=== PATIENT | male | born 1990 | race Caucasian/White ===

== ENCOUNTER 2024-03-03 12:54 | Emergency (ER) | payer OTHER ==
[~2024-03-03] VITALS: Ht 188 cm; Wt 97.5 kg
[2024-03-03 13:12] VITALS: BP 134/80; PULSE 96; RESP 18; TEMP 97.5; O2SAT 98
[2024-03-03] MEDS ORDERED: AZIT250T4 PO (14:54)
[2024-03-03] MEDS ORDERED: BENZ100C6 PO (14:54)
[2024-03-03 15:44] LABS: FLU A ANTIGEN negative (NEGATIVE); FLU B ANTIGEN negative (NEGATIVE)
[2024-03-03 15:58] VITALS: BP 134/80; PULSE 96; RESP 18; TEMP 97.5; O2SAT 98
== END 2024-03-03 15:56 | disposition home or self-care (01) ==
LOC: MED 12:54
DX: J40 Bronchitis, not specified as acute or chronic (principal); Z20.822 Contact with and (suspected) exposure to COVID-19; I10 Essential (primary) hypertension; Z94.4 Liver transplant status; Z79.899 Other long term (current) drug therapy
CPT/HCPCS: 71045; 99284